=== PATIENT | female | born 1950 | race Caucasian/White ===

== ENCOUNTER → 2017-03-03 | Outpatient (CLI) | payer OTHER | LOC: FIMAGING 11:37 | PROVIDERS: ATTEND Family Medicine Geriatric Medicine | DX: R07.81 Pleurodynia (principal); R91.8 Other nonspecific abnormal finding of lung field ==

== ENCOUNTER → 2017-03-30 | Outpatient (CLI) | payer OTHER | LOC: FIMAGING 16:52 | DX: Z13.83 Encounter for screening for respiratory disorder NEC (principal) ==